=== PATIENT | male | born 1965 | race Caucasian/White ===

== ENCOUNTER 2023-02-25 10:53 | Outpatient (RCR) | payer OTHER ==
[~2023-02-25 10:53] MED LIST: AMBIEN10 MG PO; ATIVAN2 MG PO; GLIMEPIRIDE4 MG PO; LOSARTAN POTAS100 MG PO; NORCO 7.5-3251 EACH PO; PLAVIX75 MG PO; SOMA350 MG PO; VIAGRA100 MG PO
== END 2023-03-16 ==
LOC: PT 10:53
PROVIDERS: ATTEND Neurological Surgery
DX: M51.16 Intervertebral disc disorders with radiculopathy, lumbar region (principal)